=== PATIENT | female | born 1975 | race Caucasian/White ===

== ENCOUNTER 2024-02-18 03:09 | Day surgery (SDC) | payer OTHER, SELFPAY ==
[2024-02-17 23:09] VITALS: BP 145/80
[2024-02-17 23:26] LABS: % Basophils 0.3 % (0-2); % Eosinophils 2.8 % (0-6); % Immature Granulocytes 0.3 % (0-0.5); % Lymphocytes 13.4 % (20.5-51.1); % Monocytes 5.2 % (1.7-9.3); Absolute Basophils 0.1 10^3/uL (0-0.2); Absolute Eosinophils 0.4 10^3/uL (0-0.7); Absolute Immature Granulocytes 0.1 10^3/uL (0-0.05); Absolute Monocytes 0.8 10^3/uL (0.1-0.6); Absolute Neutrophils 11.6 10^3/uL (1.4-6.5); Hematocrit 39.3 % (37.0-47.0); Hemoglobin 13.9 g/dL (12.0-16.0); Mean Corp Hgb Conc. 35.4 g/dL (33.0-37.0); Mean Corpuscular Hgb 31.7 pg (27.0-31.0); Mean Corpuscular Volume 89.5 fL (81.0-99.0); Mean Platelet Volume 8.7 fL (7.4-10.4); Nucleated Red Blood Cells % 0 %; Platelet Count 264 10^3/uL (130-400); Red Blood Cell Count 4.39 10^6/uL (4.20-5.40); Red Cell Dist. Width 12.2 % (11.5-14.5); White Blood Cell Count 14.9 10^3/uL (4.8-10.8)
--- NOTE | 2024-02-17 23:40 | ED.GENMED ---
History of Present Illness
General
Chief Complaint: Abdominal Pain
Time Seen by Provider: 02/17/24 23:40
Travel History
Have you had any contact with someone who has COVID-19?: No
Do you have any symptoms of coronavirus? Fever > 100 degrees, chills, cough, shortness of breath, sore throat, loss of taste or smell, muscle aches, or headache?: No
History of Present Illness
History of Present Illness:
49-year-old female with history of endometriosis status post hysterectomy presents to the emergency department for evaluation of mid to right lower abdominal pain beginning earlier this afternoon. Pain was sudden onset, now shooting to the right
lower quadrant. Unable to find a comfortable position. No associated fevers or chills. No nausea, vomiting, diarrhea. Prior abdominal surgeries include tummy tuck and hysterectomy without oophorectomy
Past History
Past History
ED Past Medical History: Other (Endometriosis)
ED Past Surgical History: Orthopedic (L5-S1 fusion)
Social History
Tobacco: Non-smoker
Alcohol: Daily
Drug: None
Review of Systems
Review of Systems
Allergies reviewed?: Yes
All Other Systems: ROS reviewed and negative except as documented in HPI and ROS
Phy Exam
Physical Exam
Physical Exam:
GEN: Well appearing, NAD, WDWN
Eyes: PERRLA, EOMs intact, no scleral icterus
HENT: NCAT, oral mucosa moist
Lungs: CTAB, no wheezes, rales, rhonchi, normal chest wall excursion
Cardiac: RRR
Abdomen: Soft, focal right lower quadrant tenderness specific to McBurney's point, no rigidity
Neuro: AO x 3
MSK: No gross deformity or ecchymosis. No edema. No digital clubbing
Skin: No rashes, petechiae. Normal color, no pallor or jaundice.
Psych: Calm, cooperative, proper hygiene
Course
Orders/Labs/Results
Orders:
Orders
02/17/24 23:18
CMP [Comprehensive Metabolic Panel] Urgent
Complete Blood Count/With Diff Urgent
Lipase Urgent
02/17/24 23:59
Urinalysis Reflex To Culture Urgent
Date Specimen was Collected: 02/18/24
Time Specimen was Collected: 00:27
02/18/24 00:08
Ketorolac [Toradol] 15 mg IV NOW STA
02/18/24 00:41
Urine Microscopic Reflex Cult Urgent
02/18/24 01:30
CT Abd/Pel (IV only)-DH only Urgent
Reason For Exam: RLQ pain
Abnormal Lab Results
02/17/24 02/18/24
23:18 00:41
WBC 14.9 H 10^3/uL
(4.8-10.8)
MCH 31.7 H pg
(27.0-31.0)
Abs Immat Gran (auto) 0.1 H 10^3/uL
(0-0.05)
Absolute Neuts (auto) 11.6 H 10^3/uL
(1.4-6.5)
Absolute Monos (auto) 0.8 H 10^3/uL
(0.1-0.6)
Neutrophils % 78.0 H %
(42.2-75.2)
Lymphocytes % 13.4 L %
(20.5-51.1)
Sodium 132 L mmol/L
(135-145)
BUN 19 H mg/dl
(7-17)
Glucose 111 H mg/dl
(70-99)
Ur Occult Blood Reflex 2+ A
(Negative)
Urine RBC 7-10 A /HPF
(0-2)
Urine Bacteria (Reflex) Few A
(Negative)
02/17/24 23:18
02/17/24 23:18
Vital Signs
Initial and Last Documented VS:
Initial Vital Signs
Temp Pulse Resp BP Pulse Ox
97.6 F 80 18 145/80 100
02/17/24 23:09 02/17/24 23:09 02/17/24 23:09 02/17/24 23:09 02/17/24 23:09
Last Documented Vital Signs
Temp Pulse Resp BP Pulse Ox
97.6 F 80 18 145/80 100
02/17/24 23:09 02/17/24 23:09 02/17/24 23:09 02/17/24 23:09 02/17/24 23:09
MDM/Problems Addressed
MDM/Problems Addressed:
CT confirms acute appendicitis, will admit to the surgical service for operative intervention, IV Zosyn and fluids started
*Critical Care Note
Total Time (30-74mins, 75-104mins- exclusive of procedures): Not Applicable
ED Attending Note
-
Portions of this chart may have been created with voice recognition software.� Occasional wrong word or��sound alike� substitutions may have occurred due to the inherent limitations of voice recognition software.
Discharge Plan
Departure
Patient Disposition: Admit
Date of Disposition: 02/18/24
Time of Disposition: 02:15
Admit to: Med/Surg
Presentation/result/management discussed w/ accepting MD/DO: General Surgery
Discharge Problem:
Acute appendicitis
Prescriptions:
No Action
No Current Medications
0
Referrals:
Akil Duvall MD [Family Provider] -
Interventions
Interventions:
*Risk Screen - Suicide Last Done: 02/17/24 23:09
*General Assessment Last Done: 02/18/24 00:28
*Neglect/Abuse Screening Last Done: 02/17/24 23:09
ED- Fall Risk Assessment Last Done: 02/18/24 00:28
*ED COVID-19 Vaccine History Last Done: 02/18/24 00:28
PK-Gjsgfk-Ubyeomfsjm Assessment Last Done: 02/18/24 00:28
[2024-02-17 23:41] LABS: ALT (SGPT) 22 U/L (0-35); AST (SGOT) 26 U/L (14-36); Albumin 4.6 g/dl (3.5-5.0); Alkaline Phosphatase 76 U/L (38-126); Blood Urea Nitrogen 19 mg/dl (7-17); Calcium 9.9 mg/dl (8.4-10.2); Carbon Dioxide 23 mmol/L (22-30); Chloride 104 mmol/L (98-107); Glucose 111 mg/dl (70-99); Lipase 80 U/L (23-300); Potassium 4.1 mmol/L (3.5-5.1); Sodium 132 mmol/L (135-145); Total Bilirubin 0.7 mg/dl (0.2-1.3); Total Protein 7.4 g/dl (6.3-8.2); eGFR > 60.00
[2024-02-18] VITALS (11 sets, daily range): BP systolic 106–125; BP diastolic 57–75; BMI 30.9
[2024-02-18] MEDS: TORADOL 15 MG IV (00:36)
[2024-02-18 00:50] LABS: Urine Albumin Negative (Neg - Trace); Urine Bilirubin Negative (Negative); Urine Character Clear (Clear); Urine Color Yellow; Urine Glucose Negative (Negative); Urine Ketone Negative (Negative); Urine Leukocyte Negative (Negative); Urine Nitrite Negative (Negative); Urine Occult Blood 2+ (Negative); Urine Specific Gravity 1.025 (<1.030); Urine Urobilinogen Negative (Neg - 1+)
[2024-02-18 01:06] LABS: Urine Bacteria Few (Negative); Urine Mucus Few; Urine Squamous Cell 16-20 /LPF (Few); Urine White Cell 0-2 /HPF (0-5)
[2024-02-18] MEDS: NSS 1000 IV ×3 (02:28→12:24)
[2024-02-18] MEDS: ZOSYN 50 IV ×3 (02:30→13:46)
--- NOTE | 2024-02-18 02:52 | HPS.HSE ---
Addendum entered and electronically signed by Cornell Dahl MD 02/18/24 09:28:
Patient seen and examined independently.
Patient is a 49 yo F with a PMH of IBS, endometriosis s/p laparoscopic hysterectomy and s/p abdominoplasty who presents with less than 24 hours of RLQ abdominal pain. Ms. Hills states that she was in her normal health until approximately 3 PM
yesterday when she initially developed periumbilical abdominal discomfort which localized to the RLQ. She has persistent RLQ pain. Associated nausea, and one episode of self-induced vomiting. No fevers or chills. No fluctuations in GI function.
No prior colonoscopies. No personal or family history of IBD or colon cancers.
Gen: NAD
Abd: soft, tender to palpation in RLQ, ND, non-peritoneal
Labs and imaging were reviewed.
Patient is a 49 yo F p/w acute appendicitis.
The natural history and pathophysiology of appendicitis was discussed. Options for management including medical management with antibiotics versus surgical management with appendectomy were considered and discussed. Pros and cons of both
approaches was discussed. Specifically, we discussed failure of medical management and future episodes of appendicitis versus surgical risks.
Plan for a laparoscopic appendectomy. The procedure itself, as well as the risks, benefits, and alternatives was discussed. Specifically, we discussed the risks of bleeding, infection, injury to surrounding structures (bowel, bladder), staple line
leak, need for open procedure. Typical postprocedural recovery was discussed. All questions answered. Consent signed.
-- Laparoscopic appendectomy
-- NPO, IVF
-- Zosyn
Original Note:
Family Physician
-
Family Physician: Akil Duvall
Chief Complaint
-
Abdominal pain
History of Present Illness
a 49 years old female present in ER with a complain of abdominal pain. Symptoms started yesterday afternoon around 3 pm with pain at the middle of upper abdomen then localized to RLQ. Described pain as sharp /burning pain rated at 10/10 of pain
scale, can not find comfortable position. Pain increases with moving and standing up. Symptoms associated with nausea and vomiting x1 Patient did not take any meds at home to relief her pain. Denies chills, fever, diarrhea, constipation, and urinary
symptoms. Denies SOB, chest pain or any other symptoms. Patient has a medical history of endometriosis status post hysterectomy, no other medical history and currently does not take any meds at home.
Medical History
Past Medical History
Past Medical History: Reports Other (endometriosis )
Past Surgical History: Reports Gynocological (hysterectomy without oophorectomy ) and Other (tummy tuck )
Social History
Tobacco: Non-smoker
Alcohol: Occasional
Drug: None
Personal:
Living: With Family
Employment: Employed
Family History
Family History: Not pertinent
Allergies / Home Medications
Allergies reflects when Allergies were last updated in [employer].
Home Medications with original date entered in [employer]
Allergy/Medication List:
Patient Allergies
Allergy/AdvReac Type Severity Reaction Status Date / Time
NKA - No Known Allergies Allergy NONE Uncoded 02/17/24 23:12
Home Medications Table - record
Medication Instructions Recorded Confirmed
No Meds [No Current Medications] 02/18/24 02/18/24
Review of Systems
-
A 12 point ROS was completed and negative except as noted: Yes
Constitutional: Reports No Symptoms
Respiratory: Reports No Symptoms
Cardiac: Reports No Symptoms
Abdomen/GI: Reports Abdominal Pain (RLQ), Nausea and Vomiting
: Reports No Symptoms
Musculoskeletal: Reports No Symptoms
Skin: Reports No Symptoms
Neurological: Reports No Symptoms
Psych: Reports No Symptoms
Physical Exam
Vital Signs
Vital Signs
Temp Pulse Resp BP Pulse Ox
97.6 F 80 18 145/80 100
02/17/24 23:09 02/17/24 23:09 02/17/24 23:09 02/17/24 23:09 02/17/24 23:09
Physical Exam
General: No Apparent Distress
Respiratory: Clear
Cardiac: Regular Rhythm
GI: Soft, Non Distended, Normal Bowel Sounds and Tender (RLQ + McBureny`s sign )
Musculoskeletal: No Edema
Neuro: AO x 3
Psych: Calm
Laboratory Results
-
02/17/24 23:18
02/17/24 23:18
Laboratory Results
Total Bilirubin 0.7 mg/dl (0.2-1.3) 02/17/24 23:18
AST 26 U/L (14-36) 02/17/24 23:18
ALT 22 U/L (0-35) 02/17/24 23:18
Alkaline Phosphatase 76 U/L (38-126) 02/17/24 23:18
Lipase 80 U/L (23-300) 02/17/24 23:18
Data Reviewed
-
Lab Data: Discussed with Patient
Impression/Plan
-
Abdomen/pelvis CT confirm acute appendicitis.
WBC 14.9
IMPRESSION:
Acute Appendicitis
PLAN:
Admit/observation/ med-surg (Dr. Acharya general surgery services).
NPO
IVF
Antiemetics
Analgesics
IV abx Zosyn
DVT prophylaxis Lovenox sq
Code status: full code.
[2024-02-18] MEDS: MORPHINE SULFATE 2 MG IV (08:57)
--- NOTE | 2024-02-18 09:28 | W.SUR.PREOP ---
Pre-Operative Surgical Note
-
I have examined this patient prior to the performance of the scheduled procedure.
The patient's condition is unchanged from the time of the current History and
Physical and the patient is able to undergo the scheduled procedure.
--- NOTE | 2024-02-18 10:51 | PTCARENOTE ---
Received pt in ED holding area at 0800- 2mg Dilaudid given for 7/10 for pain. IVF continue, IV Zosyn administered per order. Pt voiding in bathroom.
--- NOTE | 2024-02-18 11:00 | PTCARENOTE ---
Pt transported to surgery from ED18 with all belongings. Vitals stable, report given to pre op RN
--- NOTE | 2024-02-18 12:42 | PTCARENOTE ---
Patient received from PACU in bed; IVF infusing; Surgical site assessed with [employer]: Patient oriented to room and unit; Call nascimento within reach; Bed in lowest position, wheels locked; Assessment ongoing
[2024-02-18] MEDS: ZOFRAN 4 MG IV (12:44)
[2024-02-18] MEDS: COMPAZINE 10 MG IV (13:49)
--- NOTE | 2024-02-18 14:42 | W.IMMPOSTOP ---
Addendum entered and electronically signed by Cornell Dahl MD 02/18/24 14:48:
[facility]# [id number]
Original Note:
Surgical Immed Post Op Note
-
Primary Surgeon: Hesham
Assisting Surgeon: None
Pre-op Diagnosis: Acute appendicitis
Post-op Diagnosis: Acute appendicitis
Procedure Performed: Laparoscopic appendectomy
Anesthesia Type: General
Specimen / Cultures:
1. Appendix
Estimated Blood Loss: 3 cc
Complications: None
Operative Findings:
1. Acutely inflamed appendix, no evidence of perforation
2. Base taken with ulrich load stapler, mesentery with Ligasure device
== END 2024-02-18 17:11 | disposition home or self-care (01) ==
LOC: SDS 03:09
PROVIDERS: Physician Assistant; ATTENDING PHYSICIAN Surgery; EMERGENCY PHYSICIAN Student in an Organized Health Care Education/Training Program; FAMILY PHYSICIAN Family Medicine
DX: K35.80 Unspecified acute appendicitis (principal); R10.9 Unspecified abdominal pain; R10.31 Right lower quadrant pain
CPT/HCPCS: 44970; 88304; 74177; 80053; 81003; 81015; 83690; 85025; 96361; 96365; 96375; 99285; G0378; Q9967

== ENCOUNTER → 2025-02-04 11:49 | Outpatient (REF) | payer BC, SELFPAY | LOC: HWWDC 11:49 | PROVIDERS: ATTENDING PHYSICIAN Physician Assistant Medical | DX: Z12.31 Encounter for screening mammogram for malignant neoplasm of breast (principal) | CPT/HCPCS: 77063; 77067 ==

== ENCOUNTER 2025-03-04 06:18 | Day surgery (SDC) | payer BC, SELFPAY | END 2025-03-04 09:46 | disposition home or self-care (01) | LOC: GI 06:18 | PROVIDERS: ATTENDING PHYSICIAN Internal Medicine | DX: Z12.11 Encounter for screening for malignant neoplasm of colon (principal); D12.5 Benign neoplasm of sigmoid colon | CPT/HCPCS: 45385; 88305 ==

== ENCOUNTER → 2025-06-15 12:41 | Outpatient (REF) | payer BC, SELFPAY | LOC: WDC 12:41 | PROVIDERS: ATTENDING PHYSICIAN Physician Assistant Medical | DX: R92.30 Dense breasts, unspecified (principal) | CPT/HCPCS: 76641 ==